=== PATIENT | female | born 1960 | race Caucasian/White ===

== ENCOUNTER 2024-11-21 06:22 | Emergency (ER) | payer BC, MEDICAID ==
[2024-11-21] MEDS: Ondansetron 4 MG/2 ML SDV IVPUSH ONE (07:18)
[2024-11-21] MEDS: Sodium Chloride 0.9% 1,000 ML IV ONE (07:18)
[2024-11-21] MEDS: Sodium Chloride 0.9% 10 ML Syringe FLUSH PRN (07:18)
[2024-11-21 07:32] LABS: BASOPHILS PERCENT AUTO 0.4 % (0.0-1.0); EOSINOPHILS ABSOLUTE AUTO 0.2 K/mm3 (0.0-0.4); EOSINOPHILS PERCENT AUTO 2.5 % (0.0-6.0); HEMATOCRIT 45.2 % (37.0-47.0); HEMOGLOBIN 14.5 gm/dl (12.0-16.0); IMMATURE GRAN ABSOLUTE AUTO 0.03 K/mm3 (0.00-0.05); IMMATURE GRAN PERCENT AUTO 0.4 % (0.0-0.4); LYMPHOCYTES ABSOLUTE AUTO 2.2 K/mm3 (1.0-4.8); LYMPHOCYTES PERCENT AUTO 27.6 % (24.0-44.0); MEAN CORPUSCULAR HEMOGLOBIN 28.7 pg (28.0-32.0); MEAN CORPUSCULAR HGB CONC 32.1 g/dl (32.0-36.0); MEAN CORPUSCULAR VOLUME 89.5 fl (83.0-99.0); MEAN PLATELET VOLUME 10.2 fl (9.4-12.3); MONOCYTES ABSOLUTE AUTO 0.8 K/mm3 (0.0-0.8); MONOCYTES PERCENT AUTO 9.7 % (0.0-8.0); NEUTROPHILS ABSOLUTE AUTO 4.7 K/mm3 (1.8-7.7); NEUTROPHILS PERCENT AUTO 59.4 % (41.0-71.0); PLATELET COUNT,PLT 348 K/mm3 (150-400); RED BLOOD CELL COUNT 5.05 M/mm3 (4.10-5.30); WHITE BLOOD CELL COUNT,WBC 7.85 K/mm3 (3.9-11.3)
[2024-11-21 07:54] LABS: A/G RATIO 0.9 (1-2); ALBUMIN 3.3 g/dl (3.4-5.0); ANION GAP 10.7 (5-15); BILIRUBIN TOTAL 0.5 mg/dL (0.2-1.0); CALCIUM 9.6 mg/dL (8.5-10.1); CREATININE 0.8 mg/dL (0.55-1.02); EST CRCL DRUG DOSING (CG) 58.77 mL/min; POTASSIUM,K 3.7 mEq/L (3.5-5.1)
[2024-11-21] MEDS: Iopamidol 612 MG/ML 100 ML Bottle IVPUSH ONE (08:25)
[2024-11-21 09:16] LABS: APPEARANCE,URINE SLT CLOUDY (Clear); BILIRUBIN,URINE NEGATIVE (Negative); COLOR,URINE YELLOW (Yellow); GLUCOSE,URINE NEGATIVE (Negative); KETONES,URINE NEGATIVE (Negative); LEUKOCYTE ESTERASE,URINE NEGATIVE (Negative); NITRITE,URINE NEGATIVE (Negative); OCCULT BLOOD,URINE NEGATIVE (Negative); PH,URINE 5.5 (5.0-8.0); PROTEIN,URINE NEGATIVE (Negative); UROBILINOGEN,URINE 0.2 (0.2-1.0)
[2024-11-21] MEDS: Metoclopramide 10 MG/2 ML SDV IVPUSH ONE (10:11)
[2024-11-21] MEDS: Pantoprazole 40 MG Vial IVPUSH ONE (10:11)
[2024-11-21] MEDS: HYDROmorphone 0.5 MG/0.5 ML Syringe IVPUSH ONE (10:12)
== END 2024-11-21 11:00 | disposition home or self-care (01) ==
LOC: JD.ED 06:22
DX: K29.00 Acute gastritis without bleeding (principal); K86.9 Disease of pancreas, unspecified; Z91.048 Other nonmedicinal substance allergy status; Z88.5 Allergy status to narcotic agent; Z79.899 Other long term (current) drug therapy
CPT/HCPCS: 36415; 74177; 80053; 81003; 83690; 85025; 96361; 96374; 96375; 99284; J2405; J2470; J2765; J7030; Q9967

== ENCOUNTER 2025-08-17 11:11 | Emergency (ER) | payer BC | END 2025-08-17 12:34 | disposition home or self-care (01) | LOC: JD.ED 11:11 | DX: S42.211A Unspecified displaced fracture of surgical neck of right humerus, initial encounter for closed fracture (principal); J45.909 Unspecified asthma, uncomplicated; Z79.899 Other long term (current) drug therapy; Z88.8 Allergy status to other drugs, medicaments and biological substances; Z88.5 Allergy status to narcotic agent; Z90.49 Acquired absence of other specified parts of digestive tract; Z90.710 Acquired absence of both cervix and uterus; W01.0XXA Fall on same level from slipping, tripping and stumbling without subsequent striking against object, initial encounter | CPT/HCPCS: 73030-26-RT; 73030-RT; 99283 ==